=== PATIENT | male | born 1955 | race Caucasian/White ===

== ENCOUNTER → 2019-07-21 07:18 | Outpatient (CLI) | payer MEDICARE, SELFPAY ==
--- NOTE | ~2019-07-21 | MR_ITS ---
EXAMINATION: MR shoulder RT wo con DATE: 07/21/2019 08:03 INDICATION: Right shoulder pain. Glenohumeral arthritis. TECHNIQUE: Magnetic resonance imaging (MRI) of the right shoulder was performed without intravenous c ontrast. Sequences included axial PD-weighted FS FSE, coronal oblique PD-weighted FS FSE and T2-weigh be FS FSE, and sagittal oblique T2-weighted FS FSE and T1-weighted FSE. COMPARISON: None. FINDINGS: Coracoacromial arch: The acromion undersurface is curved in morphology (type II). There is severe acromioclavicular joint osteoarthritis including inferiorly directed osteophytes. There is a physiologic volume of fluid in s ubacromial/subdeltoid bursa. Rotator cuff: There is severe supraspinatus tendinopathy and moderate infraspinatus tendinopathy. There is a bursal -sided tear of supraspinatus tendon at the distal attachment measuring 1 mm proximal to distal by 10 mm anterior to posterior by 60% tendon thickness. Teres minor tendon is normal. There is mild subscap ularis tendinopathy. There is no asymmetric fatty atrophy of the rotator cuff muscle bellies. Biceps tendon and glenoid labrum: Biceps tendon is in bicipital groove. There is a complete tear of proximal biceps tendon. There is wi despread tearing of the glenoid labrum. Fluid: There is a small glenohumeral joint effusion. Bones/cartilage: There is full-thickness cartilage loss of anterior, central, and inferior glenoid. There is partial-t hickness cartilage loss of humeral head. Osteophytes are noted. IMPRESSION: 1. Severe glenohumeral joint chondrosis. 2. Severe rotator cuff tendinopathy with bursal-sided partial-thickness tear of supraspinatus tendon. 3. Severe acromioclavicular joint osteoarthritis. 4. Small glenohumeral joint effusion. 5. Complete tear of proximal biceps tendon. Reviewed, dictated and finalized at location A. [employer] BUSINESS ANALYST
== END ==
DX: M19.011 Primary osteoarthritis, right shoulder (principal); M25.411 Effusion, right shoulder
CPT/HCPCS: 73221

== ENCOUNTER → 2020-02-20 08:05 | Outpatient (CLI) | payer MEDICARE, SELFPAY ==
--- NOTE | ~2020-02-20 | MR_ITS ---
EXAMINATION: MR knee RT wo con DATE: 02/20/2020 09:06 INDICATION: Laxity of the right anterior cruciate ligament. TECHNIQUE: Magnetic resonance imaging (MRI) of the right knee was performed without intravenous contr ast. Sequences included coronal PD-weighted FSE, coronal PD-weighted FS FSE, sagittal T2-weighted FS E, sagittal PD-weighted FS FSE and axial PD weighted fat saturated FSE. COMPARISON: None. FINDINGS: Medial compartment: Extrusion of the medial meniscus with irregular increased signal of less than fluid intensity through out the small medial meniscal body and posterior horn most likely complex degenerative tearing althou gh could also reflect residual scarring related to prior partial meniscectomy and repaired tear. Deep chondral ulceration and fissuring throughout the weightbearing medial femoral condyle with small alma rosa tral subchondral osteophytes along the anterior weightbearing medial femoral condyle. Deep chondral u lceration along the anteromedial and posterior rim of the medial tibial plateau. Lateral compartment: Lateral extrusion of the lateral meniscal body. Higher signal intensity complex tear involving the me dial meniscal body and lateral side of the posterior horn. There is additional complex tear with fray ed appearance along the inner free edge of the medial side of the posterior horn near the posterior r oot. There is extensive full/near full-thickness cartilage loss with remodeling of the articular surf kristen of the lateral tibial plateau. Suggestion of an old healed fracture along the posterior aspect of the lateral tibial plateau with mild incongruity along the articular cortex. Additional extensive ch ondral ulceration along the weightbearing lateral femoral condyle which appears full/near full-thickn ess with mild cortical irregularity along the central aspect of the weightbearing lateral femoral con dyle. Patellofemoral compartment: Deep chondral ulceration involving greater than 50% the cartilage thickness along the inferior half o f the lateral patellar facet. Less severe chondral fissuring and ulceration along the inferior margin of the apical ridge and medial facet and along the majority of the cephalad aspect of the medial tro chlea and trochlear groove with deeper fissuring at the lateral margin of the lateral trochlea where there is mild cortical irregularity and minimal subarticular edema. Ligaments and tendons: Postoperative change of prior anterior cruciate ligament repair with complete tear of the graft ligam ent. The posterior cruciate ligament is normal. The medial collateral ligament is normal. There is at least partial tear of the femoral side of the fibular collateral ligament also involving the superio r lateral meniscal femoral ligament. The popliteal tendon is normal. Mild tendinopathy without discre te tear at the distal quadriceps tendon. There is a central defect along the patellar tendon and focu s of susceptibility artifact along the anterior patella suggesting changes of prior patellar autograf t harvest. There is scarring at the distal aspect of the pes anserinus with portion of the distal ten dons of the pes anserinus appearing to extend into the tibial tunnel. The semitendinosus tendon is no t visualized above level of the knee joint line. The gracilis muscle belly is not visualized with the tendon appearing approximated to the posterior margin of the sartorius. Taken together these finding s suggest prior utilization of the distal gracilis and semitendinosus tendons as part of the anterior cruciate ligament reconstruction. The semimembranosus and biceps femoris tendons are normal. Fluid: Small knee joint effusion with mild synovitis at the suprapatellar pouch. No loose osteochondral bodi es identified. Osseous/other: There is marrow edema surrounding a low signal intensity nondisplaced fracture line underlying the an teromedial aspect of
== END ==
PROVIDERS: PCP Family Medicine
DX: M23.8X1 Other internal derangements of right knee (principal); Z98.890 Other specified postprocedural states; M17.0 Bilateral primary osteoarthritis of knee
CPT/HCPCS: 73721

== ENCOUNTER → 2021-05-03 13:40 | Outpatient (CLI) | payer MEDICARE, SELFPAY ==
--- NOTE | ~2021-05-03 | MR_ITS ---
EXAMINATION: MR shoulder LT wo con DATE: 05/03/2021 14:36 INDICATION: Left shoulder pain. Biceps injury. TECHNIQUE: Magnetic resonance imaging (MRI) of the left shoulder was performed without intravenous co ntrast. Sequences included axial PD-weighted FS FSE, coronal oblique PD-weighted FS FSE, coronal obli que T2-weighted FS FSE, sagittal PD-weighted FS FSE, and sagittal T1-weighted SE. COMPARISON: None. FINDINGS: Coracoacromial arch: The acromion undersurface is minimally curved in morphology (type I-II). The coracoacromial ligament is normal. Moderate to severe acromioclavicular osteoarthritis. Rotator cuff: Mild supraspinatus tendinopathy. There is a small articular sided tear at the anteriormost superior f acet footplate of the supraspinatus tendon which extends approximately 3 to 4 mm AP and involves up t o one third of the tendon thickness. The tear propagates an additional 9 mm posteriorly to the conjoi aime portion of the supraspinatus and infraspinatus tendons as a mild intrasubstance tear involving no greater than one third of the tendon thickness. The teres minor tendon is normal. Mild subscapularis tendinopathy without discrete tear. Normal rotator cuff muscle bulk and signal. Biceps tendon, glenoid labrum and glenohumeral cartilage: Mild tendinopathy without discrete tear of the intra-articular long head biceps tendon. There is a re latively well-defined linear labral tear extending between the 10:30 to the 7:00 position of the post erior labrum with more irregular appearing degenerative tearing throughout the remainder of the gleno id labrum, most severe posterior superiorly were labrum has a macerated appearance with frayed margin s. Nonuniform partial thickness cartilage loss at the glenoid which appears to full/near full-thickne ss at the central to posterior aspect of the glenoid. There is tiny marginal osteophytes along the po sterior and inferior glenoid with mild subchondral cystlike changes at the inferior glenoid. Addition al small region of deep chondral ulceration at the posterior superior medial and inferomedial aspects of the humeral head. Small marginal osteophytes along the inferomedial aspect of the humeral head. Fluid: Physiologic amount of fluid in the glenohumeral joint. There appears be a small loose osteochondral b zara within the deep subscapular recess. Mild increased fluid in the long head biceps tendon sheath co nsistent with mild bicipital tenosynovitis. No abnormal increased fluid signal in the subacromial/[place] bdeltoid bursa to suggest bursitis. Bones/other: Bone alignment is normal. No fracture or pathologic marrow replacing process. Region of feathery mus cular edema involving a small portion of the central aspect of the deltoid muscle belly centered post erolateral to the humeral neck which could represent either a contusion or low-grade muscle strain. IMPRESSION: 1. Moderate glenohumeral osteoarthritis with diffuse labral tear. 2. Mild supraspinatus and subscapularis tendinopathy with mild partial thickness supraspinatus tendon tear beginning anteriorly along the articular side of the tendon and concerning posteriorly as an in trasubstance tear. 3. Mild bicipital tenosynovitis with mild tendinopathy without discrete tear of the intra-articular l dayana head biceps tendon. 4. Muscular contusion versus low-grade strain involving a small portion of the central aspect of the deltoid. 5. Moderate to severe acromioclavicular osteoarthritis. Reviewed, dictated and finalized at location A. [employer] DAYC[employer] PROVIDER IMPRESSION: 1. Moderate glenohumeral osteoarthritis with diffuse labral tear. 2. Mild supraspinatus and subscapularis tendinopathy with mild partial thicknes s supraspinatus tendon tear beginning anteriorly along the articular ousmane
== END ==
DX: S46.102A Unspecified injury of muscle, fascia and tendon of long head of biceps, left arm, initial encounter (principal); S43.432A Superior glenoid labrum lesion of left shoulder, initial encounter; M19.012 Primary osteoarthritis, left shoulder; M75.82 Other shoulder lesions, left shoulder
CPT/HCPCS: 73221